=== PATIENT | female | born 1990 | race American Indian/Alaskan Native ===

== ENCOUNTER 2019-01-12 21:43 | Inpatient (IN) | payer MEDICAID ==
--- NOTE | 2019-01-12 21:47 | EDM.PDOC ---
ED HPI GENERAL MEDICAL PROBLEM - General Stated Complaint: AMBULANCE Time Seen by Provider: 01/12/19 21:47 Source of Information: Reports: Patient History Limitations: Reports: No Limitations - History of Present Illness INITIAL COMMENTS - FREE TEXT/NARRATIVE: fever and cough since yesterday with sore throat. Generalized body aches today. Hasn't eaten today, slept most of day. Tylenol last at 3 pm. Cough productive thick green, blood tinged. Generalized Pain Score (Numeric/FACES): 8 - Related Data Allergies Allergy/AdvReac Type Severity Reaction Status Date / Time No Known Allergies Allergy Verified 01/12/19 23:33 Home Meds: Home Meds QUEtiapine [SEROquel] 25 mg PO BEDTIME 01/13/19 [History] ED ROS GENERAL - Review of Systems Review Of Systems: Comprehensive ROS is negative, except as noted in HPI. Constitutional: Reports: Fever, Chills, Decreased Appetite HEENT: Reports: No Symptoms Respiratory: Reports: No Symptoms Cardiovascular: Reports: No Symptoms Endocrine: Reports: Fatigue GI/Abdominal: Reports: No Symptoms Musculoskeletal: Reports: No Symptoms Skin: Reports: No Symptoms Neurological: Reports: No Symptoms Psychiatric: Reports: No Symptoms Hematologic/Lymphatic: Reports: No Symptoms Immunologic: Reports: No Symptoms ED EXAM, GENERAL - Physical Exam Exam: See Below Exam Limited By: No Limitations General Appearance: Alert, Moderate Distress Eye Exam: Bilateral Eye: EOMI Ears: Normal External Exam, Hearing Grossly Normal Nose: Normal Inspection Throat/Mouth: Normal Inspection Head: Atraumatic, Normocephalic Respiratory/Chest: Decreased Breath Sounds, Other (productive cough blood tinged ). No: Wheezing Cardiovascular: Normal Peripheral Pulses, Regular Rate, Rhythm, Tachycardia GI/Abdominal: Normal Bowel Sounds, Soft Neurological: Alert, Oriented, Normal Cognition Psychiatric: Normal Affect Skin Exam: Warm, Dry, Intact Course - Vital Signs Last Recorded V/S: Last Vital Signs Temp 99.0 F 01/13/19 02:25 Pulse 118 H 01/12/19 23:47 Resp 18 01/12/19 23:47 BP 102/59 L 01/12/19 23:47 Pulse Ox 99 01/13/19 00:41 - Orders/Labs/Meds Orders: Active Orders 24 hr Category Date Time Status Chest 1V Frontal [CR] Urgent Exams 01/12/19 21:44 Taken ACETAMINOPHEN [REF] Stat Lab 01/12/19 22:01 Received CULTURE BLOOD [BC] Stat Lab 01/12/19 23:01 Received CULTURE STREP A CONFIRMATION [] Stat Lab 01/12/19 21:52 Results STREP SCRN A RAPID W CULT CONF [] Stat Lab 01/12/19 21:52 Results Blood Culture x2 Reflex Set [OM.PC] Stat Oth 01/12/19 23:14 Ordered Medication Orders Acetaminophen (Tylenol) 650 mg PO Q4H PRN PRN Reason: Pain (Mild 1-3)/fever Hydrocodone Bitart/Acetaminophen ([place] 325-10 Mg) 1 tab PO Q4H PRN PRN Reason: Pain (severe 7-10) Last Admin: 01/13/19 05:09 Dose: 1 tab Levofloxacin/Dextrose 750 mg/ (Premix) 150 mls @ 100 mls/hr IV Q24H SHANE Potassium Chloride/Sodium Chloride (Normal Saline With 20 Meq Kcl) 1,000 mls @ 125 mls/hr IV ASDIRECTED [facility] Last Admin: 01/13/19 01:26 Dose: 125 mls/hr Ibuprofen (Motrin) 400 mg PO Q6H PRN PRN Reason: Pain (moderate 4-6) Last Admin: 01/13/19 01:25 Dose: 400 mg Prenat Multivit/[place]/Iron/Folic Ac ( Plus Iron) 1 each PO WITHBREAKFAST [facility] Quetiapine Fumarate (Seroquel) 25 mg PO BEDTIME [facility] Last Admin: 01/13/19 01:24 Dose: 25 mg Sodium Chloride (Saline Flush) 10 ml FLUSH ASDIRECTED PRN PRN Reason: Keep Vein Open Labs: Laboratory Tests 01/12/19 01/12/19 01/12/19 Range/Units 22:01 22:01 22:01 WBC 21.3 H (5.0-10.0) 10^3/uL RBC 4.53 (4.2-5.4) 10^6/uL Hgb 13.5 (12.0-16.0) g/dL Hct 40.6 (37.0-47.0) % MCV 89.6 (80-100) fL MCH 29.8 (27.0-34.0) pg MCHC 33.3 (33.0-35.0) g/dL Plt Count 320 (150-450) 10^3/uL Neut % (Auto) 82.8 H (42.2-75.2) % Lymph % (Auto) 9.1 L (20.5-50.1) % [place] % (Auto) 7.5 (2-8) % Eos % (Auto) 0.5 L (1.0-3.0) % Baso % (Auto) 0.1 (0.0-1.0) % D-Dimer, Quantitative 115 (0-400) ng/mL Sodium 132 L (135-145) mmol/L Potassium 3.7 (3.6-5.0) mmol/L Chloride 98 L (101-111) mmol/L Carbon Dioxide 26.0 (21.0-31.0) mmol/L Anion Gap 11.7 BUN 8 (7-18) mg/dL Creatinine 0.7 (0.6-1.3) mg/dL Est Cr Clr Drug Dosing 116.35 mL/min Estimated GFR (MDRD) > 60 BUN/Creatinine Ratio 11.42 Glucose 99 (74-105) mg/dL Lactic Acid (0.5-2.2) mmol/L Calcium 8.6 (8.4-10.2) mg/dl Total Bilirubin 0.7 (0.2-1.0) mg/dL AST 32 (10-42) IU/L ALT 42 (10-60) IU/L Alkaline Phosphatase 75 (42-121) IU/L Total Protein 8.5 H (6.7-8.2) g/dl Albumin 3.5 (3.2-5.5) g/dl Globulin 5.0 Albumin/Globulin Ratio 0.70 Amylase 26 L (28-100) U/L Lipase 21 L (22-51) U/L HCG, Qual Negative Acetaminophen ug/mL Monoscreen 01/12/19 01/12/19 Range/Units 22:01 22:01 WBC (5.0-10.0) 10^3/uL RBC (4.2-5.4) 10^6/uL Hgb (12.0-16.0) g/dL Hct (37.0-47.0) % MCV (80-100) fL MCH (27.0-34.0) pg MCHC (33.0-35.0) g/dL Plt Count (150-450) 10^3/uL Neut % (Auto) (42.2-75.2) % Lymph % (Auto) (20.5-50.1) % [place] % (Auto) (2-8) % Eos % (Auto) (1.0-3.0) % Baso % (Auto) (0.0-1.0) % D-Dimer, Quantitative (0-400) ng/mL Sodium (135-145) mmol/L Potassium (3.6-5.0) mmol/L Chloride (101-111) mmol/L Carbon Dioxide (21.0-31.0) mmol/L Anion Gap BUN (7-18) mg/dL Creatinine (0.6-1.3) mg/dL Est Cr Clr Drug Dosing mL/min Estimated GFR (MDRD) BUN/Creatinine Ratio Glucose (74-105) mg/dL Lactic Acid 0.8 (0.5-2.2) mmol/L Calcium (8.4-10.2) mg/dl Total Bilirubin (0.2-1.0) mg/dL AST (10-42) IU/L ALT (10-60) IU/L Alkaline Phosphatase (42-121) IU/L Total Protein (6.7-8.2) g/dl Albumin (3.2-5.5) g/dl Globulin Albumin/Globulin Ratio Amylase (28-100) U/L Lipase (22-51) U/L HCG, Qual Acetaminophen < 10 ug/mL Monoscreen Negative Meds: Medications Generic Name Dose Route Start Last Admin Trade Name Freq PRN Reason Stop Dose Admin Acetaminophen 650 mg 01/13/19 00:41 Tylenol PO Q4H PRN Pain (Mild 1-3)/fever Hydrocodone Bitart/Acetaminophen 1 tab 01/13/19 00:41 01/13/19 05:09 [place] 325-10 Mg PO 1 tab Q4H PRN Administration Pain (severe 7-10) Levofloxacin/Dextrose 750 mg/ 150 mls @ 100 mls/hr 01/13/19 08:00 Premix IV Q24H SHANE Potassium Chloride/Sodium Chloride 1,000 mls @ 125 mls/hr 01/13/19 00:45 08/25 01:26 Normal Saline With 20 Meq Kcl IV 125 mls/hr ASDIRECTED SHANE Administration Ibuprofen 400 mg 01/13/19 00:41 01/13/19 01:25 Motrin PO 400 mg Q6H PRN Administration Pain (moderate 4-6) Prenat Multivit/[place]/Iron/Folic Ac 1 each 01/13/19 08:00 Plus Iron PO WITHBREAKFAST [facility] Quetiapine Fumarate 25 mg 01/13/19 01:00 01/13/19 01:24 Seroquel PO 25 mg BEDTIME SHANE Administration Sodium Chloride 10 ml 01/13/19 00:41 Saline Flush FLUSH ASDIRECTED PRN Keep Vein Open Discontinued Medications Generic Name Dose Route Start Last Admin Trade Name Freq PRN Reason Stop Dose Admin Acetaminophen 650 mg 01/12/19 22:46 01/12/19 22:50 Tylenol PO 01/12/19 22:47 650 mg NOW ONE Administration Albuterol/Ipratropium 3 ml 01/12/19 23:39 01/12/19 23:47 Duoneb 3.0-0.5 Mg/3 Ml NEB 01/12/19 23:40 3 ml ONETIME ONE Administration Sodium Chloride 1,000 mls @ 999 mls/hr 01/12/19 22:34 01/12/19 22:41 Normal Saline IV 01/12/19 23:34 999 mls/hr .BOLUS ONE Administration Piperacillin Sod/Tazobactam 100 mls @ 200 mls/hr 01/12/19 22:38 01/12/19 22: 47 Sod 3.375 gm/ Sodium Chloride IV 01/12/19 23:07 200 mls/hr ONETIME ONE Administration Ondansetron HCl 4 mg 01/13/19 00:41 Zofran Odt PO Q6H PRN nausea, able to take PO Ondansetron HCl 4 mg 01/13/19 00:41 Zofran IVPUSH Q6H PRN Nausea/Vomiting Departure - Departure Time of Disposition: 23:35 Disposition: Admitted As Inpatient 66 Condition: Good Clinical Impression: Bronchitis - Discharge Information *PRESCRIPTION DRUG MONITORING PROGRAM REVIEWED*: Not Applicable *COPY OF PRESCRIPTION DRUG MONITORING REPORT IN PATIENT CASIE: Not Applicable - My Orders Last 24 Hours: My Active Orders 01/12/19 21:44 Chest 1V Frontal [CR] Urgent 01/12/19 21:52 CULTURE STREP A CONFIRMATION [RM] Stat STREP SCRN A RAPID W CULT CONF [RM] Stat 01/12/19 22:01 ACETAMINOPHEN [REF] Stat 01/12/19 23:01 CULTURE BLOOD [BC] Stat 01/12/19 23:14 Blood Culture x2 Reflex Set [OM.PC] Stat - Assessment/Plan Last 24 Hours: My Active Orders 01/12/19 21:44 Chest 1V Frontal [CR] Urgent 01/12/19 21:52 CULTURE STREP A CONFIRMATION [RM] Stat STREP SCRN A RAPID W CULT CONF [RM] Stat 01/12/19 22:01 ACETAMINOPHEN [REF] Stat 01/12/19 23:01 CULTURE BLOOD [BC] Stat 01/12/19 23:14 Blood Culture x2 Reflex Set [OM.PC] Stat
[2019-01-12 22:30] LABS: ANION GAP 11.7; CHLORIDE,CL 98 mmol/L (101-111); SODIUM,NA 132 mmol/L (135-145)
[2019-01-12] MEDS ORDERED: Sodium Chloride 0.9% 1,000 ML IV ONE (22:34)
[2019-01-12] MEDS ORDERED: Piperacillin/Tazobactam 3.375 GM in Sodium Chloride 0.9% 100 ML IV ONE (22:38)
[2019-01-12] MEDS ORDERED: Acetaminophen 325 MG Tab PO ONE (22:46)
[2019-01-12 23:07] LABS: ACETAMINOPHEN < 10 ug/mL
[2019-01-12] MEDS ORDERED: Albuterol/Ipratropium 3.0-0.5 MG/3 ML Neb Soln NEB ONE (23:39)
[2019-01-13] MEDS ORDERED: Ondansetron 4 MG/2 ML SDV IVPUSH PRN (00:41)
[2019-01-13] MEDS ORDERED: Acetaminophen 325 MG Tab PO PRN (00:41)
[2019-01-13] MEDS ORDERED: Ibuprofen 400 MG Tab PO PRN (00:41)
[2019-01-13] MEDS ORDERED: Ondansetron 4 MG Tab.DIS PO PRN (00:41)
--- NOTE | 2019-01-13 00:53 | PCM.HP ---
H&P History of Present Illness - General Date of Service: 01/13/19 Admit Problem/Dx: Admission Diagnosis/Problem Admission Diagnosis/Problem Bronchitis Source of Information: Patient - History of Present Illness Initial Comments - Free Text/Narative: 28-year-old presented with fever, body ache, cough, sore throat. Symptoms started a day ago. Has multiple people around her with cough. Sputum is green with blood tinge. Complains of left sided chest pain with breathing. Denies drug use to me but admitted earlier in the emergency room. Denies alcohol use Smoking 5 cigarettes per day Took Tylenol which did not help much with the pain. Came to the hospital emergency room Generalized Pain Score (Numeric/FACES): 8 - Related Data Allergies/Adverse Reactions: Allergies Allergy/AdvReac Type Severity Reaction Status Date / Time No Known Allergies Allergy Verified 01/12/19 23:33 Home Medications: Home Meds QUEtiapine [SEROquel] 25 mg PO BEDTIME 01/13/19 [History] Past Medical History Psychiatric History: Reports: Depression Social & Family History - Tobacco Use Smoking Status *Q: Current Every Day Smoker Years of Tobacco use: 10 Packs/Tins Daily: 0.5 - Caffeine Use Caffeine Use: Reports: Coffee, Soda, Tea - Recreational Drug Use Recreational Drug Use: Yes Drug Use in Last 12 Months: Yes Recreational Drug Type: Reports: Methamphetamine Recreational Drug Use Frequency: Weekly H&P Review of Systems - Review of Systems: Review Of Systems: See Below General: Reports: Fever, Chills, Malaise Pulmonary: Reports: Pleuritic Chest Pain, Cough, Sputum, Hemoptysis Cardiovascular: Reports: Chest Pain (With breathing). Denies: Lightheadedness, Syncope Gastrointestinal: Denies: Abdominal Pain Genitourinary: Denies: Dysuria Psychiatric: Denies: Confusion Exam - Exam Exam: See Below - Vital Signs Vital Signs: Last Vital Signs Temp 37.9 C 01/12/19 23:47 Pulse 118 H 01/12/19 23:47 Resp 18 01/12/19 23:47 BP 102/59 L 01/12/19 23:47 Pulse Ox 99 01/12/19 23:47 Weight: 102.829 kg - Exam General: Alert, Oriented Neck: Supple Lungs: Clear to Auscultation, Normal Respiratory Effort, Other (Complains of pain when touching the left chest, with breathing,). No: Rales, Rhonchi Cardiovascular: Regular Rate, Regular Rhythm GI/Abdominal Exam: Normal Bowel Sounds, Soft, Non-Tender Extremities: No Pedal Edema Skin: Warm, Dry. No: Rash - Patient Data Lab Results Last 24 hrs: Laboratory Results - last 24 hr 01/12/19 01/12/19 01/12/19 Range/Units 22:01 22:01 22:01 WBC 21.3 H (5.0-10.0) 10^3/uL RBC 4.53 (4.2-5.4) 10^6/uL Hgb 13.5 (12.0-16.0) g/dL Hct 40.6 (37.0-47.0) % MCV 89.6 (80-100) fL MCH 29.8 (27.0-34.0) pg MCHC 33.3 (33.0-35.0) g/dL Plt Count 320 (150-450) 10^3/uL Neut % (Auto) 82.8 H (42.2-75.2) % Lymph % (Auto) 9.1 L (20.5-50.1) % [place] % (Auto) 7.5 (2-8) % Eos % (Auto) 0.5 L (1.0-3.0) % Baso % (Auto) 0.1 (0.0-1.0) % D-Dimer, Quantitative 115 (0-400) ng/mL Sodium 132 L (135-145) mmol/L Potassium 3.7 (3.6-5.0) mmol/L Chloride 98 L (101-111) mmol/L Carbon Dioxide 26.0 (21.0-31.0) mmol/L Anion Gap 11.7 BUN 8 (7-18) mg/dL Creatinine 0.7 (0.6-1.3) mg/dL Est Cr Clr Drug Dosing 116.35 mL/min Estimated GFR (MDRD) > 60 BUN/Creatinine Ratio 11.42 Glucose 99 (74-105) mg/dL Lactic Acid (0.5-2.2) mmol/L Calcium 8.6 (8.4-10.2) mg/dl Total Bilirubin 0.7 (0.2-1.0) mg/dL AST 32 (10-42) IU/L ALT 42 (10-60) IU/L Alkaline Phosphatase 75 (42-121) IU/L Total Protein 8.5 H (6.7-8.2) g/dl Albumin 3.5 (3.2-5.5) g/dl Globulin 5.0 Albumin/Globulin Ratio 0.70 Amylase 26 L (28-100) U/L Lipase 21 L (22-51) U/L HCG, Qual Negative Urine Color (YELLOW) Urine Appearance (CLEAR) Urine pH (5.0-9.0) Ur Specific [place] (1.005-1.030) Urine Protein (NEGATIVE) Urine Glucose (UA) (NEGATIVE) Urine Ketones (NEGATIVE) Urine Occult Blood (NEGATIVE) Urine Nitrite (NEGATIVE) Urine Bilirubin (NEGATIVE) Urine Urobilinogen (0.2-1.0) mg/dL Ur Leukocyte Esterase (NEGATIVE) Urine Opiates Screen (NEGATIVE) Ur Oxycodone Screen (NEGATIVE) Urine Methadone Screen (NEGATIVE) Acetaminophen ug/mL Ur Barbiturates Screen (NEGATIVE) U Tricyclic Antidepress (NEGATIVE) Ur Phencyclidine Scrn (NEGATIVE) Ur Amphetamine Screen (NEGATIVE) U Methamphetamines Scrn (NEGATIVE) Urine MDMA Screen (NEGATIVE) U Benzodiazepines Scrn (NEGATIVE) Urine Cocaine Screen (NEGATIVE) U Marijuana (THC) Screen (NEGATIVE) Monoscreen 01/12/19 01/12/19 01/13/19 Range/Units 22:01 22:01 00:08 WBC (5.0-10.0) 10^3/uL RBC (4.2-5.4) 10^6/uL Hgb (12.0-16.0) g/dL Hct (37.0-47.0) % MCV (80-100) fL MCH (27.0-34.0) pg MCHC (33.0-35.0) g/dL Plt Count (150-450) 10^3/uL Neut % (Auto) (42.2-75.2) % Lymph % (Auto) (20.5-50.1) % [place] % (Auto) (2-8) % Eos % (Auto) (1.0-3.0) % Baso % (Auto) (0.0-1.0) % D-Dimer, Quantitative (0-400) ng/mL Sodium (135-145) mmol/L Potassium (3.6-5.0) mmol/L Chloride (101-111) mmol/L Carbon Dioxide (21.0-31.0) mmol/L Anion Gap BUN (7-18) mg/dL Creatinine (0.6-1.3) mg/dL Est Cr Clr Drug Dosing mL/min Estimated GFR (MDRD) BUN/Creatinine Ratio Glucose (74-105) mg/dL Lactic Acid 0.8 (0.5-2.2) mmol/L Calcium (8.4-10.2) mg/dl Total Bilirubin (0.2-1.0) mg/dL AST (10-42) IU/L ALT (10-60) IU/L Alkaline Phosphatase (42-121) IU/L Total Protein (6.7-8.2) g/dl Albumin (3.2-5.5) g/dl Globulin Albumin/Globulin Ratio Amylase (28-100) U/L Lipase (22-51) U/L HCG, Qual Urine Color Yellow (YELLOW) Urine Appearance Clear (CLEAR) Urine pH 8.5 (5.0-9.0) Ur Specific [place] 1.020 (1.005-1.030) Urine Protein Negative (NEGATIVE) Urine Glucose (UA) Negative (NEGATIVE) Urine Ketones Trace H (NEGATIVE) Urine Occult Blood Negative (NEGATIVE) Urine Nitrite Negative (NEGATIVE) Urine Bilirubin Negative (NEGATIVE) Urine Urobilinogen 2.0 H (0.2-1.0) mg/dL Ur Leukocyte Esterase Negative (NEGATIVE) Urine Opiates Screen (NEGATIVE) Ur Oxycodone Screen (NEGATIVE) Urine Methadone Screen (NEGATIVE) Acetaminophen < 10 ug/mL Ur Barbiturates Screen (NEGATIVE) U Tricyclic Antidepress (NEGATIVE) Ur Phencyclidine Scrn (NEGATIVE) Ur Amphetamine Screen (NEGATIVE) U Methamphetamines Scrn (NEGATIVE) Urine MDMA Screen (NEGATIVE) U Benzodiazepines Scrn (NEGATIVE) Urine Cocaine Screen (NEGATIVE) U Marijuana (THC) Screen (NEGATIVE) Monoscreen Negative 01/13/19 Range/Units 00:08 WBC (5.0-10.0) 10^3/uL RBC (4.2-5.4) 10^6/uL Hgb (12.0-16.0) g/dL Hct (37.0-47.0) % MCV (80-100) fL MCH (27.0-34.0) pg MCHC (33.0-35.0) g/dL Plt Count (150-450) 10^3/uL Neut % (Auto) (42.2-75.2) % Lymph % (Auto) (20.5-50.1) % [place] % (Auto) (2-8) % Eos % (Auto) (1.0-3.0) % Baso % (Auto) (0.0-1.0) % D-Dimer, Quantitative (0-400) ng/mL Sodium (135-145) mmol/L Potassium (3.6-5.0) mmol/L Chloride (101-111) mmol/L Carbon Dioxide (21.0-31.0) mmol/L Anion Gap BUN (7-18) mg/dL Creatinine (0.6-1.3) mg/dL Est Cr Clr Drug Dosing mL/min Estimated GFR (MDRD) BUN/Creatinine Ratio Glucose (74-105) mg/dL Lactic Acid (0.5-2.2) mmol/L Calcium (8.4-10.2) mg/dl Total Bilirubin (0.2-1.0) mg/dL AST (10-42) IU/L ALT (10-60) IU/L Alkaline Phosphatase (42-121) IU/L Total Protein (6.7-8.2) g/dl Albumin (3.2-5.5) g/dl Globulin Albumin/Globulin Ratio Amylase (28-100) U/L Lipase (22-51) U/L HCG, Qual Urine Color (YELLOW) Urine Appearance (CLEAR) Urine pH (5.0-9.0) Ur Specific [place] (1.005-1.030) Urine Protein (NEGATIVE) Urine Glucose (UA) (NEGATIVE) Urine Ketones (NEGATIVE) Urine Occult Blood (NEGATIVE) Urine Nitrite (NEGATIVE) Urine Bilirubin (NEGATIVE) Urine Urobilinogen (0.2-1.0) mg/dL Ur Leukocyte Esterase (NEGATIVE) Urine Opiates Screen Negative (NEGATIVE) Ur Oxycodone Screen Positive H (NEGATIVE) Urine Methadone Screen Negative (NEGATIVE) Acetaminophen ug/mL Ur Barbiturates Screen Negative (NEGATIVE) U Tricyclic Antidepress Negative (NEGATIVE) Ur Phencyclidine Scrn Negative (NEGATIVE) Ur Amphetamine Screen Positive H (NEGATIVE) U Methamphetamines Scrn Positive H (NEGATIVE) Urine MDMA Screen Negative (NEGATIVE) U Benzodiazepines Scrn Negative (NEGATIVE) Urine Cocaine Screen Negative (NEGATIVE) U Marijuana (THC) Screen Negative (NEGATIVE) Monoscreen Result Diagrams: 01/12/19 22:01 01/12/19 22:01 Peng Results Last 24 hrs: Microbiology 01/12/19 21:52 Group A Streptococcus Rapid Screen - Final Throat NEGATIVE STREP A SCREEN REFERENCE RANGE: NEGATIVE 01/12/19 21:52 Influenza Type A Antigen Screen - Final Nasal, Unspecified NEGATIVE INFLUENZA A VIRUS AG REFERENCE RANGE: NEGATIVE Influenza Type B Antigen Screen - Final NEGATIVE INFLUENZA B VIRUS AG REFERENCE RANGE: NEGATIVE *Q Meaningful Use (ADM) - VTE *Q VTE Anticoagulation Contraindications: Treatment Not Tolerated - VTE Risk Assess *Q Other Thrombophilia Type: current smoker - Problem List (1) Acute bronchitis SNOMED Code(s): 17094526 ICD Code: J20.9 - ACUTE BRONCHITIS, UNSPECIFIED Status: Acute Current Visit: Yes (2) Hemoptysis SNOMED Code(s): 17662582 ICD Code: R04.2 - HEMOPTYSIS Status: Acute Current Visit: Yes (3) Depression SNOMED Code(s): 31477655 ICD Code: F32.9 - MAJOR DEPRESSIVE DISORDER, SINGLE EPISODE, UNSPECIFIED Status: Acute Current Visit: Yes (4) Amphetamine use disorder, moderate SNOMED Code(s): 88214745, 09517457 ICD Code: F15.20 - OTHER STIMULANT DEPENDENCE, UNCOMPLICATED Status: Acute Current Visit: Yes Problem List Initiated/Reviewed/Updated: Yes Orders Last 24hrs: Active Orders 24 hr Category Date Time Status Admission Diagnosis [ADT] Stat ADT 01/12/19 23:28 Ordered Admission Status [Patient Status] [ADT] Routine ADT 01/12/19 23:28 Active Antiembolic Devices [RC] PER UNIT ROUTINE Care 01/13/19 00:42 Ordered Oxygen Therapy [RC] PRN Care 01/13/19 00:41 Ordered Peripheral IV Care [RC] . DIRECTED Care 01/13/19 00:43 Ordered RT Aerosol Therapy [RC] ASDIRECTED Care 01/12/19 23:39 Active Up With Assistance [RC] ASDIRECTED Care 01/13/19 00:41 Ordered VTE/DVT Education [RC] PER UNIT ROUTINE Care 01/13/19 00:41 Ordered Vital Signs [RC] Q4H Care 01/13/19 00:41 Ordered Regular Diet [DIET] Diet 01/13/19 Breakfast Ordered Chest 1V Frontal [CR] Urgent Exams 01/12/19 21:44 Taken ACETAMINOPHEN [REF] Stat Lab 01/12/19 22:01 Received BASIC METABOLIC PANEL,BMP [CHEM] AM Lab 01/14/19 05:15 Ordered CBC WITH AUTO DIFF [HEME] AM Lab 01/14/19 05:15 Ordered CULTURE BLOOD [BC] Stat Lab 01/12/19 23:01 Received CULTURE SPUTUM + SMEAR [RM] Routine Lab 01/13/19 00:35 Ordered CULTURE STREP A CONFIRMATION [RM] Stat Lab 01/12/19 21:52 Results PROCALCITONIN [REF] Routine Lab 01/13/19 00:35 Ordered STREP SCRN A RAPID W CULT CONF [RM] Stat Lab 01/12/19 21:52 Results Acetaminophen [Tylenol] Med 01/13/19 00:41 Ordered 650 mg PO Q4H PRN Acetaminophen/HYDROcodone [Six[place] 325-10 MG] Med 01/13/19 00:41 Ordered 1 tab PO Q4H PRN Ibuprofen [Motrin] Med 01/13/19 00:41 Ordered 400 mg PO Q6H PRN Levofloxacin/Dextrose 5%-Water [Levaquin in D5W 750 MG/ Med 01/13/19 08:00 Ordered 150 ML] 750 mg Premix Bag 1 bag IV Q24H Vit with Ca/FA/Iron [ Plus Iron] Med 01/13/19 08:00 Ordered 1 each PO WITHBREAKFAST QUEtiapine [SEROqueL] Med 01/13/19 01:00 Ordered 25 mg PO BEDTIME Sodium Chloride 0.9% [Saline Flush] Med 01/13/19 00:41 Ordered 10 ml FLUSH ASDIRECTED PRN Sodium Chloride 0.9% with KCl 20 mEq @ 125 mL/Hr (1000 Med 01/13/19 00:45 Ordered mL) NS + KCl 20mEq/L [Normal Saline with 20 mEq KCl] 1,000 ml IV ASDIRECTED Anticoagulation Contraindications VTE [AST] Per Unit Oth 01/13/19 00:41 Ordered Routine Antiembolic Hose [OM.PC] Per Unit Routine Oth 01/13/19 00:41 Ordered Blood Culture x2 Reflex Set [OM.PC] Stat Oth 01/12/19 23:14 Ordered Peripheral IV Insertion Adult [OM.PC] Routine Oth 01/13/19 00:41 Ordered Sequential Compression Device [OM.PC] Per Unit Routine Oth 01/13/19 00:41 Ordered Resuscitation Status Routine Resus Stat 01/13/19 00:41 Ordered Medication Orders Acetaminophen (Tylenol) 650 mg PO Q4H PRN PRN Reason: Pain (Mild 1-3)/fever Hydrocodone Bitart/Acetaminophen ([place] 325-10 Mg) 1 tab PO Q4H PRN PRN Reason: Pain (severe 7-10) Levofloxacin/Dextrose 750 mg/ (Premix) 150 mls @ 100 mls/hr IV Q24H SHANE Potassium Chloride/Sodium Chloride (Normal Saline With 20 Meq Kcl) 1,000 mls @ 125 mls/hr IV ASDIRECTED SHANE Ibuprofen (Motrin) 400 mg PO Q6H PRN PRN Reason: Pain (moderate 4-6) Prenat Multivit/Manager Secondary/Iron/Folic Ac ( Plus Iron) 1 each PO WITHBREAKFAST SHANE Quetiapine Fumarate (Seroquel) 25 mg PO BEDTIME SHANE Sodium Chloride (Saline Flush) 10 ml FLUSH ASDIRECTED PRN PRN Reason: Keep Vein Open Assessment/Plan Comment:: 28-year-old lady presented with fever, cough, sore throat, green/bloody sputum. She is complaining of pleuritic chest pain. She somewhat edematous stable. D-dimer, lactic acid is negative. Has good room air oxygen saturations. Acute bronchitis Obtain because the level Obtain blood culture Sputum culture Empirical treatment with levofloxacin Doubt pulmonary embolism, malignancy, significant pulmonary hemorrhage, Tuberculosis is less likely We'll monitor This might be viral syndrome Respiratory isolation On amphetamine use Short-term narcotics only Use Tylenol and Motrin Depression Continue Seroquel DVT prophylaxis with SCDs Hold heparin, Lovenox due hemoptysisto
[2019-01-13] MEDS: QUEtiapine 25 MG Tab PO SCH ×2 (01:24→20:44)
[2019-01-13] MEDS: NS + KCl 20mEq/L 1,000 ML IV SCH ×3 (01:26→19:02)
[2019-01-13] MEDS: Acetaminophen/HYDROcodone 325-10 MG Tab PO PRN ×4 (05:09→20:45)
[2019-01-13] MEDS: Prenatal Multivitamin with Calcium/Folic Acid/Iron Tab PO SCH (08:25)
[2019-01-13] MEDS: Levofloxacin/Dextrose 5%-Water 750 MG in Premix Bag 1 BAG IV SCH (08:25)
[2019-01-13] MEDS: Albuterol/Ipratropium 3.0-0.5 MG/3 ML Neb Soln NEB SCH ×3 (12:13→20:46)
--- NOTE | 2019-01-13 12:15 | PCM.PN ---
- General Info Date of Service: 01/13/19 Admission Dx/Problem (Free Text): Admission Diagnosis/Problem Admission Diagnosis/Problem Bronchitis Subjective Update: body aches are better still pleuritic cp feels it was better after duoneb no wheezing - Review of Systems General: Reports: Fever Pulmonary: Reports: Shortness of Breath, Pleuritic Chest Pain, Cough, Hemoptysis (none since admission). Denies: Wheezing Cardiovascular: Reports: Chest Pain Gastrointestinal: Denies: Abdominal Pain Genitourinary: Denies: Dysuria Neurological: Denies: Confusion - Patient Data Vitals - Most Recent: Last Vital Signs Temp 34.8 C L 01/13/19 08:18 Pulse 81 01/13/19 08:10 Resp 20 01/13/19 08:10 BP 86/53 L 01/13/19 08:10 Pulse Ox 97 01/13/19 08:10 Weight - Most Recent: 102.829 kg I&O - Last 24 Hours: Intake & Output 01/12/19 01/13/19 01/13/19 22:59 06:59 14:59 Intake Total 1117 Balance 1117 Lab Results Last 24 Hours: Laboratory Results - last 24 hr 01/12/19 01/12/19 01/12/19 Range/Units 22:01 22:01 22:01 WBC 21.3 H (5.0-10.0) 10^3/uL RBC 4.53 (4.2-5.4) 10^6/uL Hgb 13.5 (12.0-16.0) g/dL Hct 40.6 (37.0-47.0) % MCV 89.6 (80-100) fL MCH 29.8 (27.0-34.0) pg MCHC 33.3 (33.0-35.0) g/dL Plt Count 320 (150-450) 10^3/uL Neut % (Auto) 82.8 H (42.2-75.2) % Lymph % (Auto) 9.1 L (20.5-50.1) % Frio % (Auto) 7.5 (2-8) % Eos % (Auto) 0.5 L (1.0-3.0) % Baso % (Auto) 0.1 (0.0-1.0) % D-Dimer, Quantitative 115 (0-400) ng/mL Sodium 132 L (135-145) mmol/L Potassium 3.7 (3.6-5.0) mmol/L Chloride 98 L (101-111) mmol/L Carbon Dioxide 26.0 (21.0-31.0) mmol/L Anion Gap 11.7 BUN 8 (7-18) mg/dL Creatinine 0.7 (0.6-1.3) mg/dL Est Cr Clr Drug Dosing 116.35 mL/min Estimated GFR (MDRD) > 60 BUN/Creatinine Ratio 11.42 Glucose 99 (74-105) mg/dL Lactic Acid (0.5-2.2) mmol/L Calcium 8.6 (8.4-10.2) mg/dl Total Bilirubin 0.7 (0.2-1.0) mg/dL AST 32 (10-42) IU/L ALT 42 (10-60) IU/L Alkaline Phosphatase 75 (42-121) IU/L Total Protein 8.5 H (6.7-8.2) g/dl Albumin 3.5 (3.2-5.5) g/dl Globulin 5.0 Albumin/Globulin Ratio 0.70 Amylase 26 L (28-100) U/L Lipase 21 L (22-51) U/L HCG, Qual Negative Urine Color (YELLOW) Urine Appearance (CLEAR) Urine pH (5.0-9.0) Ur Specific [place] (1.005-1.030) Urine Protein (NEGATIVE) Urine Glucose (UA) (NEGATIVE) Urine Ketones (NEGATIVE) Urine Occult Blood (NEGATIVE) Urine Nitrite (NEGATIVE) Urine Bilirubin (NEGATIVE) Urine Urobilinogen (0.2-1.0) mg/dL Ur Leukocyte Esterase (NEGATIVE) Urine Opiates Screen (NEGATIVE) Ur Oxycodone Screen (NEGATIVE) Urine Methadone Screen (NEGATIVE) Acetaminophen ug/mL Ur Barbiturates Screen (NEGATIVE) U Tricyclic Antidepress (NEGATIVE) Ur Phencyclidine Scrn (NEGATIVE) Ur Amphetamine Screen (NEGATIVE) U Methamphetamines Scrn (NEGATIVE) Urine MDMA Screen (NEGATIVE) U Benzodiazepines Scrn (NEGATIVE) Urine Cocaine Screen (NEGATIVE) U Marijuana (THC) Screen (NEGATIVE) Monoscreen 01/12/19 01/12/19 01/13/19 Range/Units 22:01 22:01 00:08 WBC (5.0-10.0) 10^3/uL RBC (4.2-5.4) 10^6/uL Hgb (12.0-16.0) g/dL Hct (37.0-47.0) % MCV (80-100) fL MCH (27.0-34.0) pg MCHC (33.0-35.0) g/dL Plt Count (150-450) 10^3/uL Neut % (Auto) (42.2-75.2) % Lymph % (Auto) (20.5-50.1) % Frio % (Auto) (2-8) % Eos % (Auto) (1.0-3.0) % Baso % (Auto) (0.0-1.0) % D-Dimer, Quantitative (0-400) ng/mL Sodium (135-145) mmol/L Potassium (3.6-5.0) mmol/L Chloride (101-111) mmol/L Carbon Dioxide (21.0-31.0) mmol/L Anion Gap BUN (7-18) mg/dL Creatinine (0.6-1.3) mg/dL Est Cr Clr Drug Dosing mL/min Estimated GFR (MDRD) BUN/Creatinine Ratio Glucose (74-105) mg/dL Lactic Acid 0.8 (0.5-2.2) mmol/L Calcium (8.4-10.2) mg/dl Total Bilirubin (0.2-1.0) mg/dL AST (10-42) IU/L ALT (10-60) IU/L Alkaline Phosphatase (42-121) IU/L Total Protein (6.7-8.2) g/dl Albumin (3.2-5.5) g/dl Globulin Albumin/Globulin Ratio Amylase (28-100) U/L Lipase (22-51) U/L HCG, Qual Urine Color Yellow (YELLOW) Urine Appearance Clear (CLEAR) Urine pH 8.5 (5.0-9.0) Ur Specific [place] 1.020 (1.005-1.030) Urine Protein Negative (NEGATIVE) Urine Glucose (UA) Negative (NEGATIVE) Urine Ketones Trace H (NEGATIVE) Urine Occult Blood Negative (NEGATIVE) Urine Nitrite Negative (NEGATIVE) Urine Bilirubin Negative (NEGATIVE) Urine Urobilinogen 2.0 H (0.2-1.0) mg/dL Ur Leukocyte Esterase Negative (NEGATIVE) Urine Opiates Screen (NEGATIVE) Ur Oxycodone Screen (NEGATIVE) Urine Methadone Screen (NEGATIVE) Acetaminophen < 10 ug/mL Ur Barbiturates Screen (NEGATIVE) U Tricyclic Antidepress (NEGATIVE) Ur Phencyclidine Scrn (NEGATIVE) Ur Amphetamine Screen (NEGATIVE) U Methamphetamines Scrn (NEGATIVE) Urine MDMA Screen (NEGATIVE) U Benzodiazepines Scrn (NEGATIVE) Urine Cocaine Screen (NEGATIVE) U Marijuana (THC) Screen (NEGATIVE) Monoscreen Negative 01/13/19 Range/Units 00:08 WBC (5.0-10.0) 10^3/uL RBC (4.2-5.4) 10^6/uL Hgb (12.0-16.0) g/dL Hct (37.0-47.0) % MCV (80-100) fL MCH (27.0-34.0) pg MCHC (33.0-35.0) g/dL Plt Count (150-450) 10^3/uL Neut % (Auto) (42.2-75.2) % Lymph % (Auto) (20.5-50.1) % Frio % (Auto) (2-8) % Eos % (Auto) (1.0-3.0) % Baso % (Auto) (0.0-1.0) % D-Dimer, Quantitative (0-400) ng/mL Sodium (135-145) mmol/L Potassium (3.6-5.0) mmol/L Chloride (101-111) mmol/L Carbon Dioxide (21.0-31.0) mmol/L Anion Gap BUN (7-18) mg/dL Creatinine (0.6-1.3) mg/dL Est Cr Clr Drug Dosing mL/min Estimated GFR (MDRD) BUN/Creatinine Ratio Glucose (74-105) mg/dL Lactic Acid (0.5-2.2) mmol/L Calcium (8.4-10.2) mg/dl Total Bilirubin (0.2-1.0) mg/dL AST (10-42) IU/L ALT (10-60) IU/L Alkaline Phosphatase (42-121) IU/L Total Protein (6.7-8.2) g/dl Albumin (3.2-5.5) g/dl Globulin Albumin/Globulin Ratio Amylase (28-100) U/L Lipase (22-51) U/L HCG, Qual Urine Color (YELLOW) Urine Appearance (CLEAR) Urine pH (5.0-9.0) Ur Specific [place] (1.005-1.030) Urine Protein (NEGATIVE) Urine Glucose (UA) (NEGATIVE) Urine Ketones (NEGATIVE) Urine Occult Blood (NEGATIVE) Urine Nitrite (NEGATIVE) Urine Bilirubin (NEGATIVE) Urine Urobilinogen (0.2-1.0) mg/dL Ur Leukocyte Esterase (NEGATIVE) Urine Opiates Screen Negative (NEGATIVE) Ur Oxycodone Screen Positive H (NEGATIVE) Urine Methadone Screen Negative (NEGATIVE) Acetaminophen ug/mL Ur Barbiturates Screen Negative (NEGATIVE) U Tricyclic Antidepress Negative (NEGATIVE) Ur Phencyclidine Scrn Negative (NEGATIVE) Ur Amphetamine Screen Positive H (NEGATIVE) U Methamphetamines Scrn Positive H (NEGATIVE) Urine MDMA Screen Negative (NEGATIVE) U Benzodiazepines Scrn Negative (NEGATIVE) Urine Cocaine Screen Negative (NEGATIVE) U Marijuana (THC) Screen Negative (NEGATIVE) Monoscreen Peng Results Last 24 Hours: Microbiology 01/12/19 00:50 Gram Stain - Final Sputum - Expectorated 01/12/19 21:52 Group A Streptococcus Rapid Screen - Final Throat NEGATIVE STREP A SCREEN REFERENCE RANGE: NEGATIVE 01/12/19 21:52 Influenza Type A Antigen Screen - Final Nasal, Unspecified NEGATIVE INFLUENZA A VIRUS AG REFERENCE RANGE: NEGATIVE Influenza Type B Antigen Screen - Final NEGATIVE INFLUENZA B VIRUS AG REFERENCE RANGE: NEGATIVE Med Orders - Current: Current Medications Acetaminophen (Tylenol) 650 mg PO Q4H PRN PRN Reason: Pain (Mild 1-3)/fever Hydrocodone Bitart/Acetaminophen ([place] 325-10 Mg) 1 tab PO Q4H PRN PRN Reason: Pain (severe 7-10) Last Admin: 01/13/19 10:55 Dose: 1 tab Albuterol/Ipratropium (Duoneb 3.0-0.5 Mg/3 Ml) 3 ml NEB TIDRT SHANE Albuterol/Ipratropium (Duoneb 3.0-0.5 Mg/3 Ml) 3 ml NEB Q2H PRN PRN Reason: sob Levofloxacin/Dextrose 750 mg/ (Premix) 150 mls @ 100 mls/hr IV Q24H [facility] Last Infusion: 01/13/19 10:54 Dose: Infused Potassium Chloride/Sodium Chloride (Normal Saline With 20 Meq Kcl) 1,000 mls @ 125 mls/hr IV ASDIRECTED SHANE Last Admin: 01/13/19 10:56 Dose: 125 mls/hr Ibuprofen (Motrin) 400 mg PO Q6H PRN PRN Reason: Pain (moderate 4-6) Last Admin: 01/13/19 01:25 Dose: 400 mg Prenat Multivit/[place]/Iron/Folic Ac ( Plus Iron) 1 each PO WITHBREAKFAST [facility] Last Admin: 01/13/19 08:25 Dose: 1 each Quetiapine Fumarate (Seroquel) 25 mg PO BEDTIME [facility] Last Admin: 01/13/19 01:24 Dose: 25 mg Sodium Chloride (Saline Flush) 10 ml FLUSH ASDIRECTED PRN PRN Reason: Keep Vein Open Discontinued Medications Acetaminophen (Tylenol) 650 mg PO NOW ONE Stop: 01/12/19 22:47 Last Admin: 01/12/19 22:50 Dose: 650 mg Albuterol/Ipratropium (Duoneb 3.0-0.5 Mg/3 Ml) 3 ml NEB ONETIME ONE Stop: 01/12/19 23:40 Last Admin: 01/12/19 23:47 Dose: 3 ml Sodium Chloride (Normal Saline) 1,000 mls @ 999 mls/hr IV .BOLUS ONE Stop: 01/12/19 23:34 Last Admin: 01/12/19 22:41 Dose: 999 mls/hr Piperacillin Sod/Tazobactam (Sod 3.375 gm/ Sodium Chloride) 100 mls @ 200 mls/ hr IV ONETIME ONE Stop: 01/12/19 23:07 Last Admin: 01/12/19 22:47 Dose: 200 mls/hr Ondansetron HCl (Zofran Odt) 4 mg PO Q6H PRN PRN Reason: nausea, able to take PO Ondansetron HCl (Zofran) 4 mg IVPUSH Q6H PRN PRN Reason: Nausea/Vomiting - Exam General: Alert, Oriented Neck: Supple Lungs: Clear to Auscultation, Normal Respiratory Effort. No: Wheezing Cardiovascular: Regular Rate, Regular Rhythm GI/Abdominal Exam: Normal Bowel Sounds, Soft, Non-Tender Extremities: No Pedal Edema - Problem List & Annotations (1) Acute bronchitis SNOMED Code(s): 25377132 Code(s): J20.9 - ACUTE BRONCHITIS, UNSPECIFIED Status: Acute Current Visit: Yes (2) Hemoptysis SNOMED Code(s): 77692105 Code(s): R04.2 - HEMOPTYSIS Status: Acute Current Visit: Yes (3) Depression SNOMED Code(s): 29038544 Code(s): F32.9 - MAJOR DEPRESSIVE DISORDER, SINGLE EPISODE, UNSPECIFIED Status: Acute Current Visit: Yes (4) Amphetamine use disorder, moderate SNOMED Code(s): 04919289, 01565107 Code(s): F15.20 - OTHER STIMULANT DEPENDENCE, UNCOMPLICATED Status: Acute Current Visit: Yes - Problem List Review Problem List Initiated/Reviewed/Updated: Yes - My Orders Last 24 Hours: My Active Orders 01/13/19 00:41 Oxygen Therapy [RC] PRN Up With Assistance [RC] ASDIRECTED VTE/DVT Education [RC] PER UNIT ROUTINE Vital Signs [RC] Q4H Acetaminophen [Tylenol] 650 mg PO Q4H PRN Acetaminophen/HYDROcodone [[place] 325-10 MG] 1 tab PO Q4H PRN Ibuprofen [Motrin] 400 mg PO Q6H PRN Sodium Chloride 0.9% [Saline Flush] 10 ml FLUSH ASDIRECTED PRN Anticoagulation Contraindications VTE [AST] Per Unit Routine Antiembolic Hose [OM.PC] Per Unit Routine Peripheral IV Insertion Adult [OM.PC] Routine Sequential Compression Device [OM.PC] Per Unit Routine Resuscitation Status Routine 01/13/19 00:42 Antiembolic Devices [RC] 01/13/19 00:43 Peripheral IV Care [RC] 01/13/19 00:45 NS + KCl 20mEq/L [Normal Saline with 20 mEq KCl] 1,000 ml IV ASDIRECTED 01/13/19 00:53 Isolation [COMM] Routine 01/13/19 01:00 QUEtiapine [SEROqueL] 25 mg PO BEDTIME 01/13/19 01:50 PROCALCITONIN [REF] Routine 01/13/19 08:00 Levofloxacin/Dextrose 5%-Water [Levaquin in D5W 750 MG/150 ML] 750 mg Premix Bag 1 bag IV Q24H Vit with Ca/FA/Iron [ Plus Iron] 1 each PO WITHBREAKFAST 01/13/19 12:01 RT Aerosol Therapy [RC] ASDIRECTED RT Aerosol Therapy [RC] ASDIRECTED Albuterol/Ipratropium [DuoNeb 3.0-0.5 MG/3 ML] 3 ml NEB Q2H PRN 01/13/19 12:30 Albuterol/Ipratropium [DuoNeb 3.0-0.5 MG/3 ML] 3 ml NEB TIDRT 01/13/19 Breakfast Regular Diet [DIET] 01/14/19 05:15 BASIC METABOLIC PANEL,BMP [CHEM] AM CBC WITH AUTO DIFF [HEME] AM - Plan Plan:: 28-year-old lady presented with fever, cough, sore throat, green/bloody sputum. She is complaining of pleuritic chest pain. She somewhat edematous stable. D-dimer, lactic acid is negative. Has good room air oxygen saturations. cxr:"basilar airspace disease due to atelectasis or pneumonia" Acute bronchitis less likely pneumonia pending procalcitonin level blood culture: pending Sputum culture: pending Empirical treatment with levofloxacin add duoneb Doubt pulmonary embolism, malignancy, significant pulmonary hemorrhage, Tuberculosis is less likely We'll monitor This might be viral syndrome Respiratory isolation On amphetamine use Short-term narcotics only Use Tylenol and Motrin Depression Continue Seroquel DVT prophylaxis with SCDs Hold heparin, Lovenox due hemoptysis
[2019-01-13] MEDS: Calcium Carbonate/Vitamin D3 1250 MG-200 Unit Tab PO SCH (17:43)
[2019-01-13] MEDS: Albuterol/Ipratropium 3.0-0.5 MG/3 ML Neb Soln NEB PRN (17:51)
[2019-01-13] MEDS: hydrOXYzine HCl 25 MG Tab PO PRN (20:44)
[2019-01-14] MEDS: Acetaminophen/HYDROcodone 325-10 MG Tab PO PRN ×3 (02:54→20:22)
[2019-01-14] MEDS: Albuterol/Ipratropium 3.0-0.5 MG/3 ML Neb Soln NEB PRN (02:56)
[2019-01-14] MEDS: NS + KCl 20mEq/L 1,000 ML IV SCH (03:09)
[2019-01-14 06:53] LABS: ANION GAP 10.8; CHLORIDE,CL 105 mmol/L (101-111); SODIUM,NA 135 mmol/L (135-145)
[2019-01-14] MEDS: Albuterol/Ipratropium 3.0-0.5 MG/3 ML Neb Soln NEB SCH ×3 (07:37→20:20)
[2019-01-14] MEDS: Levofloxacin/Dextrose 5%-Water 750 MG in Premix Bag 1 BAG IV SCH (08:40)
[2019-01-14] MEDS: Prenatal Multivitamin with Calcium/Folic Acid/Iron Tab PO SCH (08:40)
[2019-01-14] MEDS: Calcium Carbonate/Vitamin D3 1250 MG-200 Unit Tab PO SCH ×2 (08:40→17:01)
--- NOTE | 2019-01-14 12:50 | PCM.PN ---
- General Info Date of Service: 01/14/19 Admission Dx/Problem (Free Text): Admission Diagnosis/Problem Admission Diagnosis/Problem Bronchitis Subjective Update: body aches are better still pleuritic cp but generally improved no leg swelling no wheezing low grade fever only blood tinged sputum on/off Functional Status: Reports: Tolerating Diet, Ambulating - Review of Systems General: Reports: Weakness Pulmonary: Reports: Shortness of Breath, Hemoptysis. Denies: Wheezing Cardiovascular: Reports: Chest Pain Gastrointestinal: Denies: Abdominal Pain Genitourinary: Denies: Dysuria Psychiatric: Denies: Confusion - Patient Data Vitals - Most Recent: Last Vital Signs Temp 37.0 C 01/14/19 08:40 Pulse 88 01/14/19 08:40 Resp 20 01/14/19 08:40 BP 113/69 01/14/19 08:40 Pulse Ox 96 01/14/19 08:40 Weight - Most Recent: 102.829 kg I&O - Last 24 Hours: Intake & Output 01/13/19 01/14/19 01/14/19 22:59 06:59 14:59 Intake Total 2220 120 Output Total 1050 Balance 1170 120 Lab Results Last 24 Hours: Laboratory Results - last 24 hr 01/14/19 01/14/19 Range/Units 05:26 05:26 WBC 15.3 H (5.0-10.0) 10^3/uL RBC 3.91 L (4.2-5.4) 10^6/uL Hgb 11.6 L D (12.0-16.0) g/dL Hct 35.3 L (37.0-47.0) % MCV 90.3 (80-100) fL MCH 29.7 (27.0-34.0) pg MCHC 32.9 L (33.0-35.0) g/dL Plt Count 284 (150-450) 10^3/uL Neut % (Auto) 70.2 (42.2-75.2) % Lymph % (Auto) 15.3 L (20.5-50.1) % [place] % (Auto) 6.7 (2-8) % Eos % (Auto) 7.7 H (1.0-3.0) % Baso % (Auto) 0.1 (0.0-1.0) % Sodium 135 (135-145) mmol/L Potassium 3.8 (3.6-5.0) mmol/L Chloride 105 (101-111) mmol/L Carbon Dioxide 23.0 (21.0-31.0) mmol/L Anion Gap 10.8 BUN 5 L (7-18) mg/dL Creatinine 0.6 (0.6-1.3) mg/dL Est Cr Clr Drug Dosing 135.75 mL/min Estimated GFR (MDRD) > 60 Glucose 87 (74-105) mg/dL Calcium 8.0 L (8.4-10.2) mg/dl Peng Results Last 24 Hours: Microbiology 01/12/19 00:50 Gram Stain - Final Sputum - Expectorated Sputum Culture - Preliminary 01/12/19 21:52 Quick Strep Confirmation Culture - Final Throat NO GROUP A STREP ISOLATED REFERENCE RANGE: NEGATIVE Group A Streptococcus Rapid Screen - Final NEGATIVE STREP A SCREEN REFERENCE RANGE: NEGATIVE 01/12/19 23:01 Aerobic Blood Culture - Preliminary Blood - Venous NO GROWTH AFTER 1 DAY Anaerobic Blood Culture - Preliminary NO GROWTH AFTER 1 DAY Med Orders - Current: Current Medications Acetaminophen (Tylenol) 650 mg PO Q4H PRN PRN Reason: Pain (Mild 1-3)/fever Hydrocodone Bitart/Acetaminophen ([place] 325-10 Mg) 1 tab PO Q4H PRN PRN Reason: Pain (severe 7-10) Last Admin: 01/14/19 08:46 Dose: 1 tab Albuterol/Ipratropium (Duoneb 3.0-0.5 Mg/3 Ml) 3 ml NEB TIDRT [facility] Last Admin: 01/14/19 07:37 Dose: 3 ml Albuterol/Ipratropium (Duoneb 3.0-0.5 Mg/3 Ml) 3 ml NEB Q2H PRN PRN Reason: sob Last Admin: 01/14/19 02:56 Dose: 3 ml Calcium Carbonate (Calcium Carbonate/Vitamin D 1250 Mg-200 Unit) 1 tab PO BIDMEALS [facility] Last Admin: 01/14/19 08:40 Dose: 1 tab Hydroxyzine HCl (Atarax) 25 mg PO Q8H PRN PRN Reason: anxiety or itching Last Admin: 01/13/19 20:44 Dose: 25 mg Levofloxacin/Dextrose 750 mg/ (Premix) 150 mls @ 100 mls/hr IV Q24H [facility] Last Admin: 01/14/19 08:40 Dose: 100 mls/hr Potassium Chloride/Sodium Chloride (Normal Saline With 20 Meq Kcl) 1,000 mls @ 125 mls/hr IV ASDIRECTED [facility] Last Admin: 01/14/19 03:09 Dose: 125 mls/hr Ibuprofen (Motrin) 400 mg PO Q6H PRN PRN Reason: Pain (moderate 4-6) Last Admin: 01/13/19 01:25 Dose: 400 mg Prenat Multivit/[place]/Iron/Folic Ac ( Plus Iron) 1 each PO WITHBREAKFAST [facility] Last Admin: 01/14/19 08:40 Dose: 1 each Quetiapine Fumarate (Seroquel) 25 mg PO BEDTIME [facility] Last Admin: 01/13/19 20:44 Dose: 25 mg Sodium Chloride (Saline Flush) 10 ml FLUSH ASDIRECTED PRN PRN Reason: Keep Vein Open Discontinued Medications Acetaminophen (Tylenol) 650 mg PO NOW ONE Stop: 01/12/19 22:47 Last Admin: 01/12/19 22:50 Dose: 650 mg Albuterol/Ipratropium (Duoneb 3.0-0.5 Mg/3 Ml) 3 ml NEB ONETIME ONE Stop: 01/12/19 23:40 Last Admin: 01/12/19 23:47 Dose: 3 ml Sodium Chloride (Normal Saline) 1,000 mls @ 999 mls/hr IV .BOLUS ONE Stop: 01/12/19 23:34 Last Admin: 01/12/19 22:41 Dose: 999 mls/hr Piperacillin Sod/Tazobactam (Sod 3.375 gm/ Sodium Chloride) 100 mls @ 200 mls/ hr IV ONETIME ONE Stop: 01/12/19 23:07 Last Admin: 01/12/19 22:47 Dose: 200 mls/hr Ondansetron HCl (Zofran Odt) 4 mg PO Q6H PRN PRN Reason: nausea, able to take PO Ondansetron HCl (Zofran) 4 mg IVPUSH Q6H PRN PRN Reason: Nausea/Vomiting - Exam Quality Assessment: No: Supplemental Oxygen General: Alert, Oriented Neck: Supple Lungs: Clear to Auscultation, Normal Respiratory Effort. No: Wheezing Cardiovascular: Regular Rate, Regular Rhythm GI/Abdominal Exam: Normal Bowel Sounds, Soft, Non-Tender Extremities: No Pedal Edema Neurological: No New Focal Deficit Psy/Mental Status: Alert, Normal Affect, Normal Mood - Problem List & Annotations (1) Acute bronchitis SNOMED Code(s): 22419422 Code(s): J20.9 - ACUTE BRONCHITIS, UNSPECIFIED Status: Acute Current Visit: Yes (2) Hemoptysis SNOMED Code(s): 72501305 Code(s): R04.2 - HEMOPTYSIS Status: Acute Current Visit: Yes (3) Depression SNOMED Code(s): 44202625 Code(s): F32.9 - MAJOR DEPRESSIVE DISORDER, SINGLE EPISODE, UNSPECIFIED Status: Acute Current Visit: Yes (4) Amphetamine use disorder, moderate SNOMED Code(s): 97882412, 62872911 Code(s): F15.20 - OTHER STIMULANT DEPENDENCE, UNCOMPLICATED Status: Acute Current Visit: Yes - Problem List Review Problem List Initiated/Reviewed/Updated: Yes - My Orders Last 24 Hours: My Active Orders 01/13/19 12:01 RT Aerosol Therapy [RC] ASDIRECTED RT Aerosol Therapy [RC] ASDIRECTED Albuterol/Ipratropium [DuoNeb 3.0-0.5 MG/3 ML] 3 ml NEB Q2H PRN 01/13/19 12:30 Albuterol/Ipratropium [DuoNeb 3.0-0.5 MG/3 ML] 3 ml NEB TIDRT 01/13/19 13:53 hydrOXYzine HCl [Atarax] 25 mg PO Q8H PRN 01/13/19 18:00 Calcium Carbonate/Vitamin D3 [Calcium Carbonate/Vitamin D 1250 MG-200 Unit] 1 tab PO BIDMEALS 01/14/19 12:48 Chest 1V Frontal [CR] Routine 01/15/19 05:15 BASIC METABOLIC PANEL,BMP [CHEM] AM CBC WITH AUTO DIFF [HEME] AM - Plan Plan:: 28-year-old lady presented with fever, cough, sore throat, green/bloody sputum. She is complaining of pleuritic chest pain. She somewhat edematous stable. D-dimer, lactic acid is negative. Has good room air oxygen saturations. cxr:"basilar airspace disease due to atelectasis or pneumonia" Acute bronchitis, less likely pneumonia pending procalcitonin level blood culture: pending Sputum culture: pending Empirical treatment with levofloxacin cont duoneb repeat CXR in AM Doubt pulmonary embolism, malignancy, significant pulmonary hemorrhage, Tuberculosis is less likely We'll monitor This might be viral syndrome Respiratory isolation On amphetamine use Short-term narcotics only Use Tylenol and Motrin Depression Continue Seroquel DVT prophylaxis with SCDs Hold heparin, Lovenox due hemoptysis
[2019-01-14] MEDS: hydrOXYzine HCl 25 MG Tab PO PRN (20:21)
[2019-01-14] MEDS: QUEtiapine 25 MG Tab PO SCH (20:22)
[2019-01-15 06:50] LABS: ANION GAP 13.4; CHLORIDE,CL 102 mmol/L (101-111); SODIUM,NA 136 mmol/L (135-145)
[2019-01-15] MEDS: Albuterol/Ipratropium 3.0-0.5 MG/3 ML Neb Soln NEB SCH ×3 (07:19→20:51)
[2019-01-15] MEDS: Prenatal Multivitamin with Calcium/Folic Acid/Iron Tab PO SCH (09:01)
[2019-01-15] MEDS: Calcium Carbonate/Vitamin D3 1250 MG-200 Unit Tab PO SCH ×3 (09:01→17:49)
[2019-01-15] MEDS: Levofloxacin/Dextrose 5%-Water 750 MG in Premix Bag 1 BAG IV SCH ×2 (09:05→09:13)
--- NOTE | 2019-01-15 09:19 | CR ---
EXAMINATION: Chest 1V Frontal SEX: Female AGE: 28 years CLINICAL HISTORY: 28-year-old hospitalized female with left-sided "pleuritic" chest pain. No known trauma. INTERPRETATION: 1. Pleural-based, wedge shaped lobar consolidation involving respectively the left upper (BASSEM), superior segment left lower (LLL) and right lower lobes (RLL). Pulmonary embolism/infarct? Multilobar pneumonia? 2. Normal cardiac silhouette. No cephalization of flow, alveolar edema or dependent pleural effusion. 3. No lung mass or hilar lymphadenopathy. 4. No pneumothorax. CONCLUSION: Abnormal. Multilobar consolidations that have INCREASED since previous (comparison) films 12 January 2019. Pulmonary infarcts or lobe pneumonitis are the principal differential considerations.
[2019-01-15] MEDS ORDERED: Potassium Chloride 10 MEQ Tab.ER PO ONE (11:11)
--- NOTE | 2019-01-15 11:18 | PCM.PN ---
- General Info Date of Service: 01/15/19 Admission Dx/Problem (Free Text): Admission Diagnosis/Problem Admission Diagnosis/Problem Bronchitis Subjective Update: still pleuritic cp but generally improved no leg swelling no wheezing blood tinged sputum on/off off oxygen has constipation Functional Status: Reports: Tolerating Diet - Review of Systems General: Reports: Weakness Pulmonary: Reports: Shortness of Breath (with activity) Cardiovascular: Reports: Chest Pain (pleuritic left sided) Gastrointestinal: Reports: Constipation. Denies: Abdominal Pain Genitourinary: Denies: Dysuria Neurological: Denies: Confusion - Patient Data Vitals - Most Recent: Last Vital Signs Temp 36.7 C 01/15/19 08:10 Pulse 98 01/15/19 08:10 Resp 20 01/15/19 08:10 BP 102/52 L 01/15/19 08:10 Pulse Ox 99 01/15/19 08:10 Weight - Most Recent: 102.829 kg I&O - Last 24 Hours: Intake & Output 01/14/19 01/15/19 01/15/19 22:59 06:59 14:59 Intake Total 540 398 Balance 540 398 Lab Results Last 24 Hours: Laboratory Results - last 24 hr 01/15/19 01/15/19 Range/Units 06:04 06:04 WBC 13.9 H (5.0-10.0) 10^3/uL RBC 4.17 L (4.2-5.4) 10^6/uL Hgb 12.3 (12.0-16.0) g/dL Hct 37.1 (37.0-47.0) % MCV 89.0 (80-100) fL MCH 29.5 (27.0-34.0) pg MCHC 33.2 (33.0-35.0) g/dL Plt Count 352 (150-450) 10^3/uL Neut % (Auto) 67.2 (42.2-75.2) % Lymph % (Auto) 14.5 L (20.5-50.1) % [place] % (Auto) 7.0 (2-8) % Eos % (Auto) 11.1 H (1.0-3.0) % Baso % (Auto) 0.2 (0.0-1.0) % Sodium 136 (135-145) mmol/L Potassium 3.4 L (3.6-5.0) mmol/L Chloride 102 (101-111) mmol/L Carbon Dioxide 24.0 (21.0-31.0) mmol/L Anion Gap 13.4 BUN 6 L (7-18) mg/dL Creatinine 0.6 (0.6-1.3) mg/dL Est Cr Clr Drug Dosing 135.75 mL/min Estimated GFR (MDRD) > 60 Glucose 101 (74-105) mg/dL Calcium 8.4 (8.4-10.2) mg/dl Peng Results Last 24 Hours: Microbiology 01/12/19 00:50 Gram Stain - Final Sputum - Expectorated Sputum Culture - Final Streptococcus Group A 01/12/19 23:01 Aerobic Blood Culture - Preliminary Blood - Venous NO GROWTH AFTER 2 DAYS Anaerobic Blood Culture - Preliminary NO GROWTH AFTER 2 DAYS 01/12/19 21:52 Quick Strep Confirmation Culture - Final Throat NO GROUP A STREP ISOLATED REFERENCE RANGE: NEGATIVE Group A Streptococcus Rapid Screen - Final NEGATIVE STREP A SCREEN REFERENCE RANGE: NEGATIVE Med Orders - Current: Current Medications Acetaminophen (Tylenol) 650 mg PO Q4H PRN PRN Reason: Pain (Mild 1-3)/fever Hydrocodone Bitart/Acetaminophen ([place] 325-10 Mg) 1 tab PO Q4H PRN PRN Reason: Pain (severe 7-10) Last Admin: 01/14/19 20:22 Dose: 1 tab Albuterol/Ipratropium (Duoneb 3.0-0.5 Mg/3 Ml) 3 ml NEB TIDRT [facility] Last Admin: 01/15/19 07:19 Dose: 3 ml Albuterol/Ipratropium (Duoneb 3.0-0.5 Mg/3 Ml) 3 ml NEB Q2H PRN PRN Reason: sob Last Admin: 01/14/19 02:56 Dose: 3 ml Calcium Carbonate (Calcium Carbonate/Vitamin D 1250 Mg-200 Unit) 1 tab PO BIDMEALS [facility] Last Admin: 01/15/19 09:01 Dose: 1 tab Hydroxyzine HCl (Atarax) 25 mg PO Q8H PRN PRN Reason: anxiety or itching Last Admin: 01/14/19 20:21 Dose: 25 mg Levofloxacin/Dextrose 750 mg/ (Premix) 150 mls @ 100 mls/hr IV DAILY [facility] Last Infusion: 01/15/19 11:08 Dose: Infused Ibuprofen (Motrin) 400 mg PO Q6H PRN PRN Reason: Pain (moderate 4-6) Last Admin: 01/13/19 01:25 Dose: 400 mg Potassium Chloride (Klor-Con 10) 40 meq PO ONETIME ONE Stop: 01/15/19 11:12 Prenat Multivit/[place]/Iron/Folic Ac ( Plus Iron) 1 each PO WITHBREAKFAST [facility] Last Admin: 01/15/19 09:01 Dose: 1 each Quetiapine Fumarate (Seroquel) 25 mg PO BEDTIME [facility] Last Admin: 01/14/19 20:22 Dose: 25 mg Senna/Docusate Sodium (Senna Plus) 1 tab PO BID [facility] Sodium Chloride (Saline Flush) 10 ml FLUSH ASDIRECTED PRN PRN Reason: Keep Vein Open Discontinued Medications Acetaminophen (Tylenol) 650 mg PO NOW ONE Stop: 01/12/19 22:47 Last Admin: 01/12/19 22:50 Dose: 650 mg Albuterol/Ipratropium (Duoneb 3.0-0.5 Mg/3 Ml) 3 ml NEB ONETIME ONE Stop: 01/12/19 23:40 Last Admin: 01/12/19 23:47 Dose: 3 ml Sodium Chloride (Normal Saline) 1,000 mls @ 999 mls/hr IV .BOLUS ONE Stop: 01/12/19 23:34 Last Admin: 01/12/19 22:41 Dose: 999 mls/hr Piperacillin Sod/Tazobactam (Sod 3.375 gm/ Sodium Chloride) 100 mls @ 200 mls/ hr IV ONETIME ONE Stop: 01/12/19 23:07 Last Admin: 01/12/19 22:47 Dose: 200 mls/hr Levofloxacin/Dextrose 750 mg/ (Premix) 150 mls @ 100 mls/hr IV Q24H [facility] Last Admin: 01/15/19 09:13 Dose: Not Given Potassium Chloride/Sodium Chloride (Normal Saline With 20 Meq Kcl) 1,000 mls @ 125 mls/hr IV ASDIRECTED [facility] Last Infusion: 01/14/19 13:09 Dose: Infused Ondansetron HCl (Zofran Odt) 4 mg PO Q6H PRN PRN Reason: nausea, able to take PO Ondansetron HCl (Zofran) 4 mg IVPUSH Q6H PRN PRN Reason: Nausea/Vomiting - Exam General: Alert, Oriented Neck: Supple Lungs: Normal Respiratory Effort. No: Rhonchi, Wheezing Cardiovascular: Regular Rate, Regular Rhythm GI/Abdominal Exam: Normal Bowel Sounds, Soft, Non-Tender Extremities: No Pedal Edema Neurological: No New Focal Deficit Psy/Mental Status: Alert, Normal Affect, Normal Mood - Problem List & Annotations (1) Acute bronchitis SNOMED Code(s): 42221156 Code(s): J20.9 - ACUTE BRONCHITIS, UNSPECIFIED Status: Acute Current Visit: Yes (2) Hemoptysis SNOMED Code(s): 98102763 Code(s): R04.2 - HEMOPTYSIS Status: Acute Current Visit: Yes (3) Depression SNOMED Code(s): 53595743 Code(s): F32.9 - MAJOR DEPRESSIVE DISORDER, SINGLE EPISODE, UNSPECIFIED Status: Acute Current Visit: Yes (4) Amphetamine use disorder, moderate SNOMED Code(s): 65446701, 50271774 Code(s): F15.20 - OTHER STIMULANT DEPENDENCE, UNCOMPLICATED Status: Acute Current Visit: Yes - Problem List Review Problem List Initiated/Reviewed/Updated: Yes - My Orders Last 24 Hours: My Active Orders 01/15/19 09:00 Levofloxacin/Dextrose 5%-Water [Levaquin in D5W 750 MG/150 ML] 750 mg Premix Bag 1 bag IV DAILY 01/15/19 11:11 Potassium Chloride [Klor-Con 10] 40 meq PO ONETIME ONE 01/15/19 11:15 Docusate Sodium/Sennosides [Senna Plus] 1 tab PO BID - Plan Plan:: 28-year-old lady presented with fever, cough, sore throat, green/bloody sputum. She is complaining of pleuritic chest pain. She somewhat edematous stable. D-dimer, lactic acid is negative. Has good room air oxygen saturations. cxr:"basilar airspace disease due to atelectasis or pneumonia" repeat cxr today per my reading showed large left sided infiltrate Acute bronchitis, strep pneumonia POA pending procalcitonin level blood culture: pending Sputum culture: Strep Empirical treatment with levofloxacin cont duoneb constipation start senna On amphetamine use Short-term narcotics only Use Tylenol and Motrin Depression Continue Seroquel DVT prophylaxis with SCDs Hold heparin, Lovenox due hemoptysis
[2019-01-15] MEDS: Acetaminophen/HYDROcodone 325-10 MG Tab PO PRN ×3 (12:29→22:04)
[2019-01-15] MEDS: hydrOXYzine HCl 25 MG Tab PO PRN (17:55)
[2019-01-15] MEDS: Sodium Chloride 0.9% 10 ML Syringe FLUSH PRN (20:30)
[2019-01-15] MEDS: QUEtiapine 25 MG Tab PO SCH (20:48)
[2019-01-16 06:32] LABS: ANION GAP 13.5; CHLORIDE,CL 103 mmol/L (101-111); SODIUM,NA 136 mmol/L (135-145)
[2019-01-16] MEDS: Albuterol/Ipratropium 3.0-0.5 MG/3 ML Neb Soln NEB SCH (07:35)
[2019-01-16] MEDS: Prenatal Multivitamin with Calcium/Folic Acid/Iron Tab PO SCH (08:45)
[2019-01-16] MEDS: Calcium Carbonate/Vitamin D3 1250 MG-200 Unit Tab PO SCH (08:45)
[2019-01-16] MEDS: Levofloxacin/Dextrose 5%-Water 750 MG in Premix Bag 1 BAG IV SCH (08:46)
[2019-01-16] MEDS: Sodium Chloride 0.9% 10 ML Syringe FLUSH PRN (08:47)
[2019-01-16] MEDS: Acetaminophen/HYDROcodone 325-10 MG Tab PO PRN (09:12)
[2019-01-16] MEDS ORDERED: Potassium Chloride 10 MEQ Tab.ER PO ONE (09:40)
--- NOTE | 2019-01-16 11:28 | PCM.DCSUM1 ---
Discharge Summary - Hospital Course Free Text/Narrative:: 28-year-old lady presented with fever, cough, sore throat, green/bloody sputum. She was complaining of pleuritic chest pain. D-dimer, lactic acid is negative. cxr:"basilar airspace disease due to atelectasis or pneumonia" repeat cxr showed large left sided infiltrate Acute bronchitis, strep pneumonia POA blood culture: pending Sputum culture: Strep treatment with levofloxacin cont duoneb prn constipation use senna as needed h/o amphetamine use Short-term narcotics only Use Tylenol and Motrin Depression Continue Seroquel Diagnosis: Stroke: No - Discharge Data Discharge Date: 01/16/19 Discharge Disposition: Home, Self-Care 01 Condition: Good - Referral to Home Health Primary Care Physician: Teja De La Cruz MD - Discharge Diagnosis/Problem(s) (1) Acute bronchitis SNOMED Code(s): 63677528 ICD Code: J20.9 - ACUTE BRONCHITIS, UNSPECIFIED Status: Acute Current Visit: Yes (2) Hemoptysis SNOMED Code(s): 02533712 ICD Code: R04.2 - HEMOPTYSIS Status: Acute Current Visit: Yes (3) Depression SNOMED Code(s): 84088626 ICD Code: F32.9 - MAJOR DEPRESSIVE DISORDER, SINGLE EPISODE, UNSPECIFIED Status: Acute Current Visit: Yes (4) Amphetamine use disorder, moderate SNOMED Code(s): 73761273, 44538645 ICD Code: F15.20 - OTHER STIMULANT DEPENDENCE, UNCOMPLICATED Status: Acute Current Visit: Yes - Patient Instructions Diet: Usual Diet as Tolerated Activity: As Tolerated - Discharge Plan *PRESCRIPTION DRUG MONITORING PROGRAM REVIEWED*: Not Applicable *COPY OF PRESCRIPTION DRUG MONITORING REPORT IN PATIENT CASIE: Not Applicable Prescriptions/Med Rec: Albuterol/Ipratropium [DuoNeb 3.0-0.5 MG/3 ML] 3 ml NEB Q6HR PRN #30 neb PRN Reason: sob, wheezing Ibuprofen [Motrin] 400 mg PO TID PRN #30 tab PRN Reason: Pain Levofloxacin 750 mg PO DAILY #10 tablet Home Medications: Home Meds QUEtiapine [SEROquel] 25 mg PO BEDTIME 01/13/19 [History] Albuterol/Ipratropium [DuoNeb 3.0-0.5 MG/3 ML] 3 ml NEB Q6HR PRN #30 neb [Rx] Ibuprofen [Motrin] 400 mg PO TID PRN #30 tab 01/16/19 [Rx] Levofloxacin 750 mg PO DAILY #10 tablet 01/16/19 [Rx] Patient Handouts: Albuterol; Ipratropium respiratory inhalation spray ( Combivent Respimat), How to Use a Nebulizer, Adult, Levofloxacin tablets, Acute Bronchitis, Adult Referrals: Eber Crain MD [Physician] - (in 3-4 days) - Discharge Summary/Plan Comment DC Time >30 min.: No - General Info Date of Service: 01/16/19 Admission Dx/Problem (Free Text: Admission Diagnosis/Problem Admission Diagnosis/Problem Bronchitis Subjective Update: still pleuritic cp but much improved no leg swelling no wheezing no more blood tinged sputum off oxygen - Review of Systems General: Denies: Fever, Weakness Pulmonary: Reports: Shortness of Breath (much improved), Pleuritic Chest Pain, Cough. Denies: Hemoptysis Gastrointestinal: Denies: Abdominal Pain Neurological: Denies: Confusion - Patient Data Vitals - Most Recent: Last Vital Signs Temp 36.6 C 01/16/19 07:54 Pulse 91 01/16/19 07:54 Resp 18 01/16/19 07:54 BP 100/57 L 01/16/19 07:54 Pulse Ox 94 L 01/16/19 07:54 Weight - Most Recent: 102.829 kg I&O - Last 24 hours: Intake & Output 01/15/19 01/16/19 01/16/19 22:59 06:59 14:59 Intake Total 600 850 Balance 600 850 Lab Results - Last 24 hrs: Laboratory Results - last 24 hr 01/13/19 01/16/19 01/16/19 Range/Units 01:50 05:44 05:44 WBC 12.9 H (5.0-10.0) 10^3/uL RBC 4.11 L (4.2-5.4) 10^6/uL Hgb 12.1 (12.0-16.0) g/dL Hct 36.2 L (37.0-47.0) % MCV 88.1 (80-100) fL MCH 29.4 (27.0-34.0) pg MCHC 33.4 (33.0-35.0) g/dL Plt Count 407 (150-450) 10^3/uL Neut % (Auto) 64.5 (42.2-75.2) % Lymph % (Auto) 18.1 L (20.5-50.1) % [place] % (Auto) 7.5 (2-8) % Eos % (Auto) 9.7 H (1.0-3.0) % Baso % (Auto) 0.2 (0.0-1.0) % Sodium 136 (135-145) mmol/L Potassium 3.5 L (3.6-5.0) mmol/L Chloride 103 (101-111) mmol/L Carbon Dioxide 23.0 (21.0-31.0) mmol/L Anion Gap 13.5 BUN 8 (7-18) mg/dL Creatinine 0.6 (0.6-1.3) mg/dL Est Cr Clr Drug Dosing 135.75 mL/min Estimated GFR (MDRD) > 60 Glucose 98 (74-105) mg/dL Calcium 8.4 (8.4-10.2) mg/dl Procalcitonin 0.32 H (<0.10) ng/mL RADHA Results - Last 24 hrs: Microbiology 01/12/19 23:01 Aerobic Blood Culture - Preliminary Blood - Venous NO GROWTH AFTER 3 DAYS Anaerobic Blood Culture - Preliminary NO GROWTH AFTER 3 DAYS 01/12/19 00:50 Gram Stain - Final Sputum - Expectorated Sputum Culture - Final Streptococcus Group A Med Orders - Current: Current Medications Acetaminophen (Tylenol) 650 mg PO Q4H PRN PRN Reason: Pain (Mild 1-3)/fever Hydrocodone Bitart/Acetaminophen ([place] 325-10 Mg) 1 tab PO Q4H PRN PRN Reason: Pain (severe 7-10) Last Admin: 01/16/19 09:12 Dose: 1 tab Albuterol/Ipratropium (Duoneb 3.0-0.5 Mg/3 Ml) 3 ml NEB TIDRT [facility] Last Admin: 01/16/19 07:35 Dose: 3 ml Albuterol/Ipratropium (Duoneb 3.0-0.5 Mg/3 Ml) 3 ml NEB Q2H PRN PRN Reason: sob Last Admin: 01/14/19 02:56 Dose: 3 ml Calcium Carbonate (Calcium Carbonate/Vitamin D 1250 Mg-200 Unit) 1 tab PO BIDMEALS [facility] Last Admin: 01/16/19 08:45 Dose: 1 tab Hydroxyzine HCl (Atarax) 25 mg PO Q8H PRN PRN Reason: anxiety or itching Last Admin: 01/15/19 17:55 Dose: 25 mg Levofloxacin/Dextrose 750 mg/ (Premix) 150 mls @ 100 mls/hr IV DAILY [facility] Last Admin: 01/16/19 08:46 Dose: 100 mls/hr Ibuprofen (Motrin) 400 mg PO Q6H PRN PRN Reason: Pain (moderate 4-6) Last Admin: 01/13/19 01:25 Dose: 400 mg Prenat Multivit/Ogle/Iron/Folic Ac ( Plus Iron) 1 each PO WITHBREAKFAST [facility] Last Admin: 01/16/19 08:45 Dose: 1 each Quetiapine Fumarate (Seroquel) 25 mg PO BEDTIME [facility] Last Admin: 01/15/19 20:48 Dose: 25 mg Senna/Docusate Sodium (Senna Plus) 1 tab PO BID [facility] Last Admin: 01/16/19 08:45 Dose: 1 tab Sodium Chloride (Saline Flush) 10 ml FLUSH ASDIRECTED PRN PRN Reason: Keep Vein Open Last Admin: 01/16/19 08:47 Dose: 10 ml Discontinued Medications Acetaminophen (Tylenol) 650 mg PO NOW ONE Stop: 01/12/19 22:47 Last Admin: 01/12/19 22:50 Dose: 650 mg Albuterol/Ipratropium (Duoneb 3.0-0.5 Mg/3 Ml) 3 ml NEB ONETIME ONE Stop: 01/12/19 23:40 Last Admin: 01/12/19 23:47 Dose: 3 ml Sodium Chloride (Normal Saline) 1,000 mls @ 999 mls/hr IV .BOLUS ONE Stop: 01/12/19 23:34 Last Admin: 01/12/19 22:41 Dose: 999 mls/hr Piperacillin Sod/Tazobactam (Sod 3.375 gm/ Sodium Chloride) 100 mls @ 200 mls/ hr IV ONETIME ONE Stop: 01/12/19 23:07 Last Admin: 01/12/19 22:47 Dose: 200 mls/hr Levofloxacin/Dextrose 750 mg/ (Premix) 150 mls @ 100 mls/hr IV Q24H [facility] Last Admin: 01/15/19 09:13 Dose: Not Given Potassium Chloride/Sodium Chloride (Normal Saline With 20 Meq Kcl) 1,000 mls @ 125 mls/hr IV ASDIRECTED [facility] Last Infusion: 01/14/19 13:09 Dose: Infused Influenza Virus Vaccine (Afluria Quad 2018- (3yr Up)) 60 mcg IM .ONCE ONE Stop: 01/16/19 10:46 Last Admin: 01/16/19 10:56 Dose: 60 mcg Ondansetron HCl (Zofran Odt) 4 mg PO Q6H PRN PRN Reason: nausea, able to take PO Ondansetron HCl (Zofran) 4 mg IVPUSH Q6H PRN PRN Reason: Nausea/Vomiting Potassium Chloride (Klor-Con 10) 40 meq PO ONETIME ONE Stop: 01/15/19 11:12 Last Admin: 01/15/19 12:29 Dose: 40 meq Potassium Chloride (Klor-Con 10) 40 meq PO ONETIME ONE Stop: 01/16/19 09:41 Last Admin: 01/16/19 10:55 Dose: 40 meq - Exam General: Reports: Alert, Oriented Neck: Reports: Supple Lungs: Reports: Clear to Auscultation, Normal Respiratory Effort Cardiovascular: Reports: Regular Rate, Regular Rhythm Extremities: No Pedal Edema *Q Meaningful Use (DIS) - VTE *Q VTE Anticoagulation Contraindications: Treatment Not Tolerated
== END 2019-01-16 12:00 | disposition home or self-care (01) | DRG 871 ==
LOC: DL.ED 21:43 → DL.MS 23:28 → UNDOADMIN 23:40 → DL.MS 23:40
PROVIDERS: ADMIT Internal Medicine; ATTEND Internal Medicine
DX: J40 Bronchitis, not specified as acute or chronic (principal); Z79.899 Other long term (current) drug therapy; A41.9 Sepsis, unspecified organism; J15.4 Pneumonia due to other streptococci; R04.2 Hemoptysis; J20.9 Acute bronchitis, unspecified; F32.9 Major depressive disorder, single episode, unspecified; F15.90 Other stimulant use, unspecified, uncomplicated; K59.00 Constipation, unspecified; F17.210 Nicotine dependence, cigarettes, uncomplicated; Z23 Encounter for immunization
CPT/HCPCS: 36415; 71045; 80053; 80329; 82150; 83605; 83690; 84703; 85025; 85379; 86308; 87040; 87070; 87081; 87205; 87430; 87804 ×2; 96365; 99284; A9270; J2543; J7030; J7050; 80048; 80305-QW; 81003; 84145; 87077; 90686; 94010; 94640; G0480; J1956; J3480; J7620-GY